=== PATIENT | male | born 1950 | race Caucasian/White ===

== ENCOUNTER 2016-10-14 06:24 | Day surgery (SDC) | payer BC ==
[2016-10-14] MEDS ORDERED: MIDAZOLAM HCL 2MG/2ML VIAL IV ONE (14:00)
[2016-10-14] MEDS ORDERED: LIDOCAINE 2% MDV (20MG/ML) 20ML VIAL IV ONE (14:00)
[2016-10-14] MEDS ORDERED: PROPOFOL 10 MG/ML VIAL IV ONE (14:00)
--- NOTE | 2016-10-19 09:50 | Operative Note ---
DATE OF SURGERY: 10/14/2016 REQUESTING PHYSICIAN: Dr. Laura Weaver Surgeon: Orquidea Gardiner MD. DIAGNOSES: 1. Left-sided colonic diverticulosis. 2. A 1 cm sessile polyp in the descending colon that was removed by snare cautery. 3. A 2-3 mm sessile rectal polyp removed by cold biopsy forceps. OPERATION: COLONOSCOPY. REASON FOR PROCEDURE: This is a 66-year-old male with average risk for colorectal cancer who presented for screening colonoscopy purpose. SEDATION PER ANESTHESIA: Pulse oximetry was monitored throughout the duration of the procedure to maintain O2 saturation of 90% or greater. Supplemental oxygen was administered via nasal cannula. Cardiac and vital signs were monitored throughout the duration of the procedure and they were stable. PROCEDURE: Description of the procedure of colonoscopy, risks and alternatives to the procedure including the risks of bleeding and perforation among others were explained to the patient who voiced understanding and agreed to have the procedure done. Physical examination was performed and the patient was found stable for sedation. The patient was then placed in the left lateral position and sedation was initiated. Digital rectal exam was performed and showed small external hemorrhoids with no palpable rectal masses. A lubricated Olympus PCF-180AL colonoscope was then inserted into the rectum under direct visualization and was advanced to the cecum without difficulty. The ileocecal valve and appendiceal orifice were identified and photographed. The colonic mucosa was carefully examined upon insertion of the colonoscope. There were scattered diverticula noted in the sigmoid and descending colon. In the descending colon was a 1 cm sessile polyp that was removed by snare cautery. There were no other lesions. The colonoscope was then withdrawn very carefully re-examining the colonic mucosal surfaces. No other lesions were noted. In the rectum, however, were eight 2-3 mm polyps that were noted and they were removed by cold biopsy forceps. The colonoscope was then withdrawn and the procedure was terminated. The patient tolerated the procedure well without any complications. He remained with stable vital signs and was sent to the Recovery Room. PLAN: 1. He is to be on a low-residue diet for 2 weeks and thereafter to be on a high fiber diet. 2. He is to avoid any aspirin or aspirin-containing medications for 2 weeks. 3. He is to have a repeat colonoscopy for surveillance in 3 or 5 or 10 years, depending on the severity of the polyps. Thank you for allowing me to participate in the care of this patient. Adeel Armando MD CC: Dr. Laura HURST
== END 2016-10-14 08:30 | disposition home or self-care (01) ==
LOC: HOP 06:24
PROVIDERS: ATTEND Internal Medicine Gastroenterology
DX: Z12.11 Encounter for screening for malignant neoplasm of colon (principal); Z86.010 Personal history of colon polyps; D12.4 Benign neoplasm of descending colon; K62.1 Rectal polyp; K57.30 Diverticulosis of large intestine without perforation or abscess without bleeding; I10 Essential (primary) hypertension; E78.00 Pure hypercholesterolemia, unspecified

== ENCOUNTER 2018-06-28 08:56 | Day surgery (SDC) | payer BC ==
[2018-06-28] MEDS ORDERED: LIDOCAINE 1% MPF 100MG/10ML STERILE-PAK AMPULE IV ONE (08:57)
[2018-06-28] MEDS ORDERED: TETRACAINE HCL 0.5% OPTH 2ML SOLU OPTH ONE (08:57)
[2018-06-28] MEDS ORDERED: PROPOFOL 10 MG/ML VIAL IV ONE (08:57)
[2018-06-28] MEDS ORDERED: TETRACAINE HCL 0.5% 15 ML OPTH BTL OPTH ONE (08:57)
[2018-06-28] MEDS ORDERED: NEOMYCIN/POLY./DEXAM OPTH OINT OPTH ONE (08:57)
[2018-06-28] MEDS ORDERED: LIDOCAINE 2% MDV (20MG/ML) 20ML VIAL IV ONE ×2 (08:57)
[2018-06-28] MEDS ORDERED: EPINEPHRINE 1 MG/ML AMPUL SQ ONE (08:57)
[2018-06-28] MEDS ORDERED: CIPROFLOXACIN HCL 0.0015 GM, PHENYLEPHRINE HCL 0.05 GM, KETOROLAC TROMETHAMINE 0.000625 GM MC ONE ×5 (14:45)
--- NOTE | 2018-06-30 11:09 | OP NOTE CHAMES ---
DATE OF PROCEDURE: 06/28/2018. PREOPERATIVE DIAGNOSIS: Nuclear sclerotic cataract, left eye. POSTOPERATIVE DIAGNOSIS: Nuclear sclerotic cataract, left eye. OPERATION: Phacoemulsification of cataractous lens with implantation of intraocular lens. LENS IMPLANT USED: Barksdale Model PCB00 + 15.5 diopters. COMPLICATIONS: None. PROCEDURE IN DETAIL: Following a retrobulbar and facial block, the patient was prepped and draped in the usual fashion for eye surgery. A lid speculum was placed in the left eye after which a 2.4 mm tunnel wound was placed at the temporal limbus and dissected into clear cornea. A paracentesis was placed at 2 oclock hours to the left and right of the initial incision and the chamber deepened with Viscoelastic. The keratome was then used to enter the anterior chamber after which the continuous circular capsulorrhexis was accomplished without difficulty using a bent needle and a Utrata forceps. Hydrodissection and hydrodelineation of the lens was performed after which the nucleus of the lens was removed using the Phaco handpiece in the [id number] technique. The residual cortical material was irrigated and aspirated from the eye after which the bag and chamber were re-examined. The bag was re-inflated with Viscoelastic and the intraocular lens injected into the capsular bag where it centered well. The Viscoelastic was then copiously irrigated and aspirated from the eye after which the temporal tunnel wound and paracentesis were hydrated and the wounds were examined. They were noted to be watertight. The lid speculum was removed from the eye and the eye patched and shielded. The patient was transferred to the recovery room in satisfactory condition and given an appointment to be reexamined in the clinic later today or as directed by Dr. Reyes. JOB NUMBER: [id number] [facility]
== END 2018-06-28 11:30 | disposition home or self-care (01) ==
LOC: SUR 08:56
PROVIDERS: ATTEND Ophthalmology
DX: H25.12 Age-related nuclear cataract, left eye (principal); I10 Essential (primary) hypertension; E78.00 Pure hypercholesterolemia, unspecified
CPT/HCPCS: J0171; J3490

== ENCOUNTER 2018-07-12 08:59 | Day surgery (SDC) | payer BC ==
[2018-07-12] MEDS ORDERED: LIDOCAINE 2% MDV (20MG/ML) 20ML VIAL IV ONE ×2 (09:00)
[2018-07-12] MEDS ORDERED: EPINEPHRINE 1 MG/ML AMPUL SQ ONE (09:00)
[2018-07-12] MEDS ORDERED: NEOMYCIN/POLY./DEXAM OPTH OINT OPTH ONE (09:00)
[2018-07-12] MEDS ORDERED: TETRACAINE HCL 0.5% 15 ML OPTH BTL OPTH ONE (09:00)
[2018-07-12] MEDS ORDERED: PROPOFOL 10 MG/ML VIAL IV ONE (09:00)
[2018-07-12] MEDS ORDERED: CIPROFLOXACIN HCL 0.0015 GM, PHENYLEPHRINE HCL 0.05 GM, KETOROLAC TROMETHAMINE 0.000625 GM MC ONE ×5 (15:30)
--- NOTE | 2018-07-12 22:19 | Operative Note ---
DATE OF PROCEDURE: 07/12/18. PREOPERATIVE DIAGNOSIS: Nuclear sclerotic and cortical cataract, right eye. POSTOPERATIVE DIAGNOSIS: Nuclear sclerotic and cortical cataract, right eye. OPERATION: Phacoemulsification of cataractous lens with implantation of intraocular lens. LENS IMPLANT USED: Barksdale Model PCB00 + 17.5 diopters. COMPLICATIONS: None. PROCEDURE IN DETAIL: Following a retrobulbar and facial block, the patient was prepped and draped in the usual fashion for eye surgery. A lid speculum was placed in the right eye after which a 2.4 mm tunnel wound was placed at the temporal limbus and dissected into clear cornea. A paracentesis was placed at 2 o'clock hours to the left and right of the initial incision and the chamber deepened with Viscoelastic. The keratome was then used to enter the anterior chamber after which the continuous circular capsulorrhexis was accomplished without difficulty using a bent needle and a Utrata forceps. Hydrodissection and hydrodelineation of the lens was performed after which the nucleus of the lens was removed using the Phaco handpiece in the [id number] technique. The residual cortical material was irrigated and aspirated from the eye after which the bag and chamber were re-examined. The bag was re-inflated with Viscoelastic and the intraocular lens injected into the capsular bag where it centered well. The Viscoelastic was then copiously irrigated and aspirated from the eye after which the temporal tunnel wound and paracentesis were hydrated and the wounds were examined. They were noted to be watertight. The lid speculum was removed from the eye and the eye patched and shielded. The patient was transferred to the recovery room in satisfactory condition and given an appointment to be reexamined in the clinic later today or as directed by Dr. Reyes. No complications. JOB NUMBER: [id number] [facility]
== END 2018-07-12 11:35 | disposition home or self-care (01) ==
LOC: SUR 08:59
PROVIDERS: ATTEND Ophthalmology
DX: H25.12 Age-related nuclear cataract, left eye (principal); I10 Essential (primary) hypertension; E78.00 Pure hypercholesterolemia, unspecified
CPT/HCPCS: J0171

== ENCOUNTER 2018-07-17 05:42 | Emergency (ER) | payer BC ==
[2018-07-17] MEDS ORDERED: 0.9 % SODIUM CHLORIDE 1,000 ML BAG IV ONE (05:52)
[2018-07-17] MEDS ORDERED: ACETAMINOPHEN 1,000 MG/100 ML BTL IVPB ONE (05:52)
--- NOTE | 2018-07-17 05:58 | Emergency Department Record ---
History of Present Illness - General Source: Patient, Family Mode of Arrival: Ambulatory Limitations: No limitations - History of Present Illness Initial Comments: 68 yo male presents with the gradual worsening of left lower quadrant pain. He states he first noted the discomfort on Monday. The pain was mild until Monday when it increased. No fevers or chills. No nausea or vomiting. No diarrhea. No blood in the stools. No changes in urinate. No changes in appetite. The pain is worse with palpation and certain positions. He has a history of prior appendectomy. He states he had diverticulosis of a colonoscopy a couple years ago as well as polyps. No history of diverticulosis. His PCP is that [facility]. He states he has been doing a lot of yard work that seems to worsen the pain as well. No back or flank pain. No history of renal stones. MD Complaint: Abdominal pain -: Days(s) (3) Location: LLQ Radiation: LLQ Migration to: LLQ Quality: Aching Consistency: Constant Improves With: Rest Worsens With: Movement Associated Symptoms: Denies other symptoms <PARISA ARROYO - Last Filed: 07/17/18 07:05> <Jesus Alberto Mueller - Last Filed: 07/17/18 09:31> - General Chief Complaint: Abdominal Pain Stated Complaint: ABDOMINAL PAIN Time Seen by Provider: 07/17/18 05:43 - Related Data Previous Rx's Medication Instructions Recorded Ciprofloxacin HCl [Cipro] 500 mg PO Q12HR 10 Days #20 tablet 07/17/18 Hydrocodone/Acetaminophen [[place] 1 each PO Q4HR 3 Days #12 tablet 07/17/18 5-325 Tablet] Metronidazole [Flagyl] 500 mg PO BID 10 Days #20 tablet 07/17/18 Allergies Allergy/AdvReac Type Severity Reaction Status Date / Time No Known Drug Allergies Allergy Unverified 06/15/17 08:37 Review of Systems Constitutional: Denies: Chills, Fever, Malaise, Weakness Eyes: Denies: Eye discharge ENT: Denies: Congestion, Throat pain Respiratory: Denies: Cough, Dyspnea Cardiovascular: Denies: Chest pain, Syncope Endocrine: Denies: Fatigue Gastrointestinal: Reports: As per HPI, Abdominal pain. Denies: Diarrhea, Hematemesis, Hematochezia, Nausea, Vomiting Genitourinary: Denies: Dysuria, Frequency, Hematuria Musculoskeletal: Denies: Arthralgia, Back pain, Joint swelling, Myalgia Skin: Denies: Bruising, Change in color, Rash Neurological: Denies: Confusion, Headache Psychiatric: Denies: Anxiety Hematological/Lymphatic: Denies: Easy bleeding, Easy bruising, Swollen glands <ARROYOPARISA - Last Filed: 07/17/18 07:05> Past Medical History - SOCIAL HISTORY Smoking Status: Former smoker - RESPIRATORY Hx Respiratory Disorders: No - CARDIOVASCULAR Hx Cardio Disorders: Yes Hx Hypertension: Yes (on meds good control) Comment:: high cholesterol - NEURO Hx Neuro Disorders: No - GI Hx GI Disorders: Yes Hx Diverticulitis: Yes Hx Reflux: Yes (occassionally) Hx of Polyps: Yes - Hx Genitourinary Disorders: Yes Hx Bladder Problem: Yes (nocturia) - ENDOCRINE Hx Endocrine Disorders: No - MUSCULOSKELETAL Hx Musculoskeletal Disorders: No - PSYCH Hx Psych Problems: No - HEMATOLOGY/ONCOLOGY Hx Hematology/Oncology Disorders: No <PARISA ARROYO - Last Filed: 07/17/18 07:05> Family Medical History Hx Cancer: Mother Hx Heart Disease: Mother <ARROYOPARISA - Last Filed: 07/17/18 07:05> Physical Exam - General General Appearance: Alert, Oriented x3, Cooperative, No acute distress Limitations: No limitations - Head Head exam: Atraumatic, Normal inspection - Eye Eye exam: Normal appearance. negative: Conjunctival injection - ENT ENT exam: Normal exam Ear exam: Normal external inspection Nasal Exam: Normal inspection Mouth exam: Normal external inspection - Neck Neck exam: Normal inspection - Respiratory Respiratory exam: Normal lung sounds bilaterally. negative: Respiratory distress - Cardiovascular Cardiovascular Exam: Regular rate, Normal rhythm, Normal heart sounds - GI/Abdominal GI/Abdominal exam: Soft, Normal bowel sounds, Tenderness (He is tender in the lower left abdomen, soft on palpation. The remaining abdomen is very soft and non tender.). negative: Distended, Rebound, Rigid - Rectal Rectal exam: Deferred - exam: Deferred - Extremities Extremities exam: Normal inspection, Full ROM, Normal capillary refill. negative: Tenderness - Back Back exam: Denies: CVA tenderness (R), CVA tenderness (L) - Neurological Neurological exam: Alert, Oriented X3 - Psychiatric Psychiatric exam: Normal affect, Normal mood - Skin Skin exam: Dry, Intact, Normal color, Warm. negative: Rash <PARISA ARROYO - Last Filed: 07/17/18 07:05> Course Vital Signs 07/17/18 05:48 Temperature 97.9 F Pulse Rate [ 90 Pulse Ox Probe] Respiratory 20 Rate Blood Pressure 122/86 [Left Arm] Pulse Ox 95 - Reevaluation(s) Reevaluation #1: EMR reviewed. No prior abdominal CT on EMR. 07/17/18 05:59 07/17/18 06:00 EMR reviewed On 10/14/16 The patient had a colonoscopy that demonstrated left sided diverticulosis, polyps. 07/17/18 06:12 The CBC was reviewed. The WBC is 11.4 with normal Hgb. 07/17/18 06:27 No acute changes on the CMP or lipase. 07/17/18 07:05 The case was signed out to Dr Mueller for review of the UA and CT scan <PARISA ARROYO - Last Filed: 07/17/18 07:05> Vital Signs 07/17/18 07/17/18 05:48 06:59 Temperature 97.9 F Pulse Rate [ 90 84 Pulse Ox Probe] Respiratory 20 20 Rate Blood Pressure 122/86 102/56 [Left Arm] Pulse Ox 95 96 - Reevaluation(s) Reevaluation #2: 07/17/18 07:40 At 07:00AM pt care assumed for Dr. Arroyo. Chart and labs reviewed. Pt sitting on cart with family at bedside. Pt drinking contrast awaiting CT. Pt denies pain in abd while sitting still. Resting comfortably. Await result of CT. Up to bathroom for UA. Reevaluation #3: 07/17/18 09:15 CT report short segment sigmoid diverticulitis with involved omentum that herniates into the inguinal canal. No bowel in canal per radiologist report. Pt would like to go home. Given Cipro and flagyl in ED with norco for home. Discussed with Dr. mishra and page out to Dr. Calero. and patient aware of need to return to ED immediately if fever, more pain, or vomiting. Reevaluation #4: 07/17/18 09:28 Dr. Mishra agrees with plan. Referral to Dr. Calero. <Jesus Alberto Mueller - Last Filed: 07/17/18 09:31> Medical Decision Making - Lab Data Result diagrams: 07/17/18 05:59 07/17/18 05:59 <PARISA ARROYO - Last Filed: 07/17/18 07:05> - Lab Data Result diagrams: 07/17/18 05:59 07/17/18 05:59 Lab Results 07/17/18 07/17/18 07/17/18 Range/Units 05:59 05:59 07:05 WBC 11.4 (4.2-12.2) K/uL RBC 5.21 (4.40-5.70) M/uL Hgb 15.1 (14.0-18.0) gm/dl Hct 44.1 (42.0-52.0) % MCV 84.6 (81-97) fl MCH 29.0 (27-33) pg MCHC 34.2 (32-36) g/dl RDW 13.0 (11.5-14.5) % Plt Count 173 (130-400) K/uL MPV 9.4 (7.4-10.4) fl Neutrophils % 74.0 (47-80) % Band Neutrophils % 0.0 (0-5) % Eosinophils % Not Reportable Basophils % Not Reportable Lymphocytes 19.0 (16-45) % Monocytes 5.0 (0-9) % Basophils 0.0 (0-6) % Eosinophil Count 2.0 (0-6) % Sodium 139 (136-145) mmol/L Potassium 4.1 (3.4-4.5) mmol/L Chloride 103 (98-107) mmol/L Carbon Dioxide 21.0 L (22-29) mmol/L Anion Gap 15.0 (7-16) BUN 13 (8-23) mg/dL Creatinine 0.8 (0.7-1.2) mg/dL Estimated GFR > 60 mL/min Random Glucose 110 H (74-109) mg/dL Calcium 8.9 (8.8-10.2) mg/dL Total Bilirubin 0.60 (0.2-1.0) mg/dL AST 19 (10.0-50.0) U/L ALT 24 (<41) U/L Alkaline Phosphatase 51 (40-129) U/L Total Protein 7.4 (6.6-8.7) g/dL Albumin 4.1 (4.0-5.0) g/dL Globulin 3.3 (1.4-4.8) gm/dL Albumin/Globulin Ratio 1.2 (1.1-1.8) Lipase 43 (13-60) U/L Urine Color Yellow Urine Appearance Clear Urine pH 5.5 (5.0-8.0) Ur Specific Speed 1.010 (1.002-1.030) Urine Protein Negative (NEGATIVE) Urine Glucose (UA) Negative (NEGATIVE) Urine Ketones Negative (NEGATIVE) Urine Blood Negative (NEGATIVE) Urine Nitrite Negative (NEGATIVE) Urine Bilirubin Negative (NEGATIVE) Urine Urobilinogen 0.2 (0.20 - 1.00) E.U./dL Ur Leukocyte Esterase Negative (NEGATIVE) <Jesus Alberto Mueller - Last Filed: 07/17/18 09:31> Disposition <PARISA ARROYO - Last Filed: 07/17/18 07:05> Disposition: Discharge Return To Work/School Note Provided: No <Jesus Alberto Mueller - Last Filed: 07/17/18 09:31> Clinical Impression: Abdominal pain, Diverticula of colon Disposition: Home, Self-Care Condition: (2) Stable Instructions: Abdominal Pain (ED), Diverticulitis (ED), Diverticulitis Diet (ED ) Prescriptions: Hydrocodone/Acetaminophen [[place] 5-325 Tablet] 1 each PO Q4HR 3 Days #12 tablet Ciprofloxacin HCl [Cipro] 500 mg PO Q12HR 10 Days #20 tablet Metronidazole [Flagyl] 500 mg PO BID 10 Days #20 tablet Referrals: Luis Calero [DOCTOR OF OSTEOPATH] - Forms: Patient Portal Access Quality - Blood Pressure Screening Does Patient Have Any of the Following: No Blood Pressure Classification: Normal BP Reading Systolic Measurement: 102 Diastolic Measurement: 56 Screening for High Blood Pressure: < Normal BP, F/U Not Required > [G8783] <PARISA ARROYO - Last Filed: 07/17/18 07:05> - Quality Measures Quality Measures: N/A - Blood Pressure Screening Does Patient Have Any of the Following: No Blood Pressure Classification: Normal BP Reading Systolic Measurement: 102 Diastolic Measurement: 56 Screening for High Blood Pressure: Patient Exclusion, Hx of HTN [G9744] <Jesus Alberto Mueller - Last Filed: 07/17/18 09:31>
[2018-07-17 06:03] LABS: HEMATOCRIT 44.1 % (42.0-52.0); HEMOGLOBIN 15.1 gm/dl (14.0-18.0); MEAN CELL VOLUME 84.6 fl (81-97); MEAN CORPUSCULAR HGB CONC 34.2 g/dl (32-36); MEAN PLATELET VOLUME 9.4 fl (7.4-10.4); PLATELET COUNT 173 K/uL (130-400); RED BLOOD COUNT 5.21 M/uL (4.40-5.70); WHITE BLOOD COUNT W/O DIFF 11.4 K/uL (4.2-12.2)
[2018-07-17 06:19] LABS: BLOOD UREA NITROGEN 13 mg/dL (8-23); CREATININE 0.8 mg/dL (0.7-1.2); EST GLOMERULAR FILTRATION RATE > 60 mL/min
[2018-07-17 06:20] LABS: TOTAL PROTEIN 7.4 g/dL (6.6-8.7)
[2018-07-17 06:22] LABS: GLUCOSE,RANDOM 110 mg/dL (74-109)
[2018-07-17 06:25] LABS: ALB/GLOB RATIO 1.2 (1.1-1.8); ALBUMIN 4.1 g/dL (4.0-5.0); ALKALINE PHOSPHATASE 51 U/L (40-129); ALT/SGPT 24 U/L (<41); AST/SGOT 19 U/L (10.0-50.0); LIPASE 43 U/L (13-60)
[2018-07-17 07:16] LABS: URINE APPEARANCE CLEAR; URINE BILIRUBIN NEGATIVE (NEGATIVE); URINE BLOOD NEGATIVE (NEGATIVE); URINE COLOR YELLOW; URINE GLUCOSE (UA) NEGATIVE (NEGATIVE); URINE KETONE NEGATIVE (NEGATIVE); URINE LEUKOCYTE ESTERASE NEGATIVE (NEGATIVE); URINE NITRITE NEGATIVE (NEGATIVE); URINE PROTEIN NEGATIVE (NEGATIVE); URINE UROBILINOGEN 0.2 E.U./dL (0.20 - 1.00)
[2018-07-17] MEDS ORDERED: KETOROLAC 30 MG/ML VIAL IVP ONE (09:00)
[2018-07-17] MEDS ORDERED: CIPROFLOXACIN HCL 500 MG TABLET PO ONE (09:12)
[2018-07-17] MEDS ORDERED: METRONIDAZOLE 250 MG TABLET PO ONE (09:13)
[2018-07-17] MEDS ORDERED: HYDROCODONE/APAP 5/325MG TABLET PO ONE (09:14)
--- NOTE | 2018-07-17 15:06 | CT SCAN REPORT ---
EXAM: CT OF THE ABDOMEN AND PELVIS WITH CONTRAST HISTORY: LEFT LOWER QUADRANT PAIN. TECHNIQUE: Sequential axial images were obtained from the diaphragms through the ischiorectal fossa after intravenous administration of 100 ml of Omnipaque 300 contrast material. Oral contrast was also administered. Comparison: None. FINDINGS: The visualized lung bases are normal. Mild cardiomegaly. No pericardial effusion. Fatty infiltration of the liver. No gallstones or ductal dilatation. The pancreas and spleen appear normal. The adrenal glands and kidneys appear normal. No CT findings suggestive of obstructive uropathy. No cystic or solid lesions. The small bowel appears normal. The appendix is well visualized and appears normal. There is a short segment of wall thickening and adjacent inflammatory change involving the sigmoid colon. Findings are consistent with diverticulitis. There is inflammatory change of the adjacent omentum extending into the left inguinal canal. The urinary bladder appears normal. The osseous structures are normal. IMPRESSION: SHORT SEGMENT OF WALL THICKENING AND ADJACENT INFLAMMATORY CHANGE INVOLVING THE SIGMOID COLON. FINDINGS ARE SUGGESTIVE OF DIVERTICULITIS. IN ADDITION, THERE IS INFLAMMATORY CHANGE OF THE OMENTAL FAT EXTENDING INTO THE LEFT INGUINAL CANAL. FINDINGS ARE SUGGESTIVE OF HERNIATION OF THE OMENTUM INTO THE LEFT INGUINAL CANAL. JOB NUMBER: [id number] [facility]
== END 2018-07-17 09:39 | disposition home or self-care (01) ==
LOC: ER 05:42
DX: K57.32 Diverticulitis of large intestine without perforation or abscess without bleeding (principal); R10.32 Left lower quadrant pain; I10 Essential (primary) hypertension; Z87.891 Personal history of nicotine dependence
CPT/HCPCS: 99284 ×2; 96365; 83690; 80053; 81003; 85027; 74177; Q9967; J7030